=== PATIENT | male | born 1970 | race Caucasian/White ===

== ENCOUNTER 2017-06-05 15:10 | Emergency (ER) | payer SELFPAY ==
[2017-06-05] MEDS ORDERED: methylPREDNISolone Sodium Succinate 125 MG/2 ML SDV IVPUSH ONE (15:17)
[2017-06-05] MEDS ORDERED: Sodium Chloride 0.9% 2.5 ML Syringe FLUSH PRN (15:17)
[2017-06-05] MEDS ORDERED: Sodium Chloride 0.9% 10 ML Syringe FLUSH PRN (15:17)
[2017-06-05] MEDS ORDERED: EPINEPHrine 1 MG/ML SDV ONE (15:17)
[2017-06-05] MEDS ORDERED: Sodium Chloride 0.9% 1,000 ML IV ONE (15:17)
[2017-06-05] MEDS ORDERED: diphenhydrAMINE 50 MG/ML SDV IVPUSH ONE (15:17)
--- NOTE | 2017-06-05 15:21 | EDM.PDOC ---
ED HPI GENERAL MEDICAL PROBLEM - General Stated Complaint: ALLERGIC REACTION Time Seen by Provider: 06/05/17 15:18 Source of Information: Reports: Patient History Limitations: Reports: No Limitations - History of Present Illness INITIAL COMMENTS - FREE TEXT/NARRATIVE: HISTORY AND PHYSICAL: []46-year-old male presenting with allergic reaction from his sandwich at lunch known History of Present Illness: []3+ edema surrounding his eyes Review of Systems: As per history of present illness and below otherwise all systems reviewed and negative. Past medical history: As per history of present illness and as reviewed below otherwise noncontributory. Surgical history: As per history of present illness and as reviewed below otherwise noncontributory. Social history: No reported history of drug or alcohol abuse. Family history: As per history of present illness and as reviewed below otherwise noncontributory. Physical exam: Alert oriented gentleman, denies any shortness of breath. Answering questions in full sentences without shortness of breath HEENT: Atraumatic, normocehpalic, pupils reactive, negative for conjunctival pallor or scleral icterus, mucous membranes moist, throat clear, neck supple, nontender, trachea midline. 3+ edema circumferential to eyes lips are good no tongue swelling Lungs: Clear to auscultation, breath sounds equal bilaterally, chest non tender. Shallow respirations Heart: S1S2, regular, negative for clicks, rubs, or JVD. Abdomen: Soft, nondistended, nontender. Negative for masses or hepatossplenmegaly. Negative for costovertebral tenderness. Pelvis: Stable nontender. Genitourinary: Deferred. Rectal: Deferred Extremities: Atraumatic, negative for cords or calf pain. Neurovascular unremarkable. Neuro: Awake, alert, oriented. Cranial nerves II through XII unremarkable. Cerebellum unremarkable. Motor and sensory unremarkable throughout. Exam nonfocal. Edema has reduced slightly around his eyes his vision has improved No chest tightness No edema to oral mucosa or tongue Diagnostics: [] Therapeutics: []0.4 epinephrine IM Benadryl 50 IV Solu-Medrol 125 IV Normal saline Impression: [Allergic reaction] Plan: [Discharged to home] Benadryl 2 capsules every 4 hours as needed Claritin 10 mg daily was 2 weeks Medrol Dosepak as directed Definitive disposition and diagnosis as appropriate pending reevaluation and review of above. Onset: Today, Sudden Duration: Hour(s): Location: Reports: Face, Chest no pain Pain Score (Numeric/FACES): 0 - Related Data Allergies Allergy/AdvReac Type Severity Reaction Status Date / Time Pork/Porcine Containing Allergy Other Verified 06/05/17 15:38 Products Home Meds: Home Meds methylPREDNISolone [Medrol] 4 mg PO ASDIRECTED #1 dosepk 06/05/17 [Rx] ED ROS ALLERGIC REACTION - Review of Systems Review Of Systems: ROS reveals no pertinent complaints other than HPI. ED EXAM GENERAL NO PERIP PULSE - Physical Exam Exam: See Below Course - Vital Signs Last Recorded V/S: Last Vital Signs Temp 36.5 C 06/05/17 15:15 Pulse 110 H 06/05/17 15:45 Resp 20 06/05/17 15:45 BP 124/69 06/05/17 15:45 Pulse Ox 99 06/05/17 15:45 - Orders/Labs/Meds Orders: Active Orders 24 hr Category Date Time Status Sodium Chloride 0.9% [Saline Flush] Med 06/05/17 15:17 Active 10 ml FLUSH ASDIRECTED PRN Sodium Chloride 0.9% [Saline Flush] Med 06/05/17 15:17 Active 2.5 ml FLUSH ASDIRECTED PRN Saline Lock Insert [OM.PC] Stat Oth 06/05/17 15:17 Ordered Medication Orders Sodium Chloride (Saline Flush) 10 ml FLUSH ASDIRECTED PRN PRN Reason: Keep Vein Open Last Admin: 06/05/17 15:35 Dose: 10 ml Sodium Chloride (Saline Flush) 2.5 ml FLUSH ASDIRECTED PRN PRN Reason: Keep Vein Open Last Admin: 06/05/17 15:35 Dose: 2.5 ml Meds: Medications Generic Name Dose Route Start Last Admin Trade Name Freq PRN Reason Stop Dose Admin Sodium Chloride 10 ml 06/05/17 15:17 06/05/17 15:35 Saline Flush FLUSH 10 ml ASDIRECTED PRN Administration Keep Vein Open Sodium Chloride 2.5 ml 06/05/17 15:17 06/05/17 15:35 Saline Flush FLUSH 2.5 ml ASDIRECTED PRN Administration Keep Vein Open Discontinued Medications Generic Name Dose Route Start Last Admin Trade Name Freq PRN Reason Stop Dose Admin Diphenhydramine HCl 50 mg 06/05/17 15:17 06/05/17 15:35 Benadryl IVPUSH 06/05/17 15:18 50 mg ONETIME ONE Administration Epinephrine HCl Confirm 06/05/17 15:17 06/05/17 16:15 Adrenalin 1:1000 Administered 06/05/17 15:18 Not Given Dose 1 mg .ROUTE .STK-MED ONE Epinephrine HCl 0.4 mg 06/05/17 15:29 06/05/17 15:17 Adrenalin 1:1000 IM 06/05/17 15:30 0.4 mg ONETIME ONE Administration Sodium Chloride 1,000 mls @ 999 mls/hr 06/05/17 15:17 06/05/17 15:34 Normal Saline IV 06/05/17 16:17 999 mls/hr STAT ONE Administration Methylprednisolone Sodium Succinate 125 mg 06/05/17 15:17 06/05/17 15:35 Solu-Medrol IVPUSH 06/05/17 15:18 125 mg ONETIME ONE Administration Departure - Departure Time of Disposition: 16:22 Disposition: Home, Self-Care 01 Condition: Good Clinical Impression: Allergic reaction Qualifiers: Encounter type: initial encounter Qualified Code(s): T78.40XA - Allergy, unspecified, initial encounter - Discharge Information Prescriptions: methylPREDNISolone [Medrol] 4 mg PO ASDIRECTED #1 dosepk Referrals: PCP,None [Primary Care Provider] - Additional Instructions: The following information is given to patients seen in the emergency department who are being discharged to home. This information is to outline your options for follow-up care. We provide all patients seen in our emergency department with a follow-up referral. The need for follow-up, as well as the timing and circumstances, are variable depending upon the specifics of your emergency department visit. If you don't have a primary care physician on staff, we will provide you with a referral. We always advise you to contact your personal physician following an emergency department visit to inform them of the circumstance of the visit and for follow-up with them and/or the need for any referrals to a consulting specialist. The emergency department will also refer you to a specialist when appropriate. This referral assures that you have the opportunity for followup care with a specialist. All of these measure are taken in an effort to provide you with optimal care, which includes your followup. Under all circumstances we always encourage you to contact your private physician who remains a resource for coordinating your care. When calling for followup care, please make the office aware that this follow-up is from your recent emergency room visit. If for any reason you are refused follow-up, please contact the [facility] emergency department at and asked to speak to the emergency department charge nurse. Benadryl every 4 hours 2 capsules Claritin every day for 10 days to 2 weeks Follow up with your primary care provider Makenzie Kessler - My Orders Last 24 Hours: My Active Orders 06/05/17 15:17 Sodium Chloride 0.9% [Saline Flush] 10 ml FLUSH ASDIRECTED PRN Sodium Chloride 0.9% [Saline Flush] 2.5 ml FLUSH ASDIRECTED PRN Saline Lock Insert [OM.PC] Stat - Assessment/Plan Last 24 Hours: My Active Orders 06/05/17 15:17 Sodium Chloride 0.9% [Saline Flush] 10 ml FLUSH ASDIRECTED PRN Sodium Chloride 0.9% [Saline Flush] 2.5 ml FLUSH ASDIRECTED PRN Saline Lock Insert [OM.PC] Stat
[2017-06-05] MEDS ORDERED: EPINEPHrine 1 MG/ML SDV IM ONE (15:29)
== END 2017-06-05 16:30 | disposition home or self-care (01) ==
LOC: MW.ED 15:10
DX: T78.1XXA Other adverse food reactions, not elsewhere classified, initial encounter (principal); R22.0 Localized swelling, mass and lump, head
CPT/HCPCS: 96361; 96374; 96375; 99284; J0171; J1200; J2930; J7040